=== PATIENT | female | born 1990 | race Caucasian/White ===

== ENCOUNTER 2021-02-25 07:05 | Day surgery (SDC) | payer BC ==
[~2021-02-25 07:05] MED LIST: Lactated Ringers 1,000 ML IV SCH; Lidocaine 1%/Sod Bicarbonate in NS 8.4% 1 ML Syringe IDERM PRN; Sodium Chloride 0.9% 10 ML Syringe FLUSH PRN
[2021-02-25] MEDS ORDERED: Methylene Blue 50 MG/10 ML Ampule ONE (07:09)
[2021-02-25] MEDS ORDERED: Bupivacaine 0.5% 30 ML SDV ONE (07:09)
[2021-02-25] MEDS ORDERED: Dextrose 5% in Water 100 ML ONE (07:10)
[2021-02-25] MEDS ORDERED: Rocuronium 50 MG/5 ML Vial ONE (07:21)
[2021-02-25] MEDS ORDERED: Ondansetron 4 MG/2 ML SDV ONE (07:21)
[2021-02-25] MEDS ORDERED: fentaNYL 250 MCG/5 ML SDV ONE (07:21)
[2021-02-25] MEDS ORDERED: Propofol 200 MG/20 ML SDV ONE (07:21)
[2021-02-25] MEDS ORDERED: Midazolam 1 MG/ML 2 ML SDV ONE (07:21)
[2021-02-25] MEDS ORDERED: Lidocaine 1% 4 ML ONE (07:21)
--- NOTE | 2021-02-25 07:39 | PCM.PREANE ---
Preanesthetic Assessment - Procedure Proposed Procedure: Laparoscopy with chromotubation - Anesthesia/Transfusion/Family Hx Anesthesia History: Unknown Family History of Anesthesia Reaction: No Transfusion History: No Prior Transfusion(s) Intubation History: Unknown - Review of Systems General: No Symptoms Pulmonary: Other ("Stuffy nose" from allergies) Cardiovascular: No Symptoms Gastrointestinal: No Symptoms Neurological: Other (Migraine and sciatic pain (right leg)) Other: Reports: None - Physical Assessment NPO Status Date: 02/24/21 NPO Status Time: 20:00 Vital Signs: 129/77 HR 75 RR 16 SpO2 98 Temp: 98.7 ASA Class: 2 Mental Status: Alert & Oriented x3 Airway Class: Mallampati = 1 Dentition: Reports: Normal Dentition Thyro-Mental Finger Breadths: 3 Mouth Opening Finger Breadths: 3 ROM/Head Extension: Full Lungs: Clear to Auscultation, Normal Respiratory Effort Cardiovascular: Regular Rate, Regular Rhythm - Lab Values: Laboratory Last Values Urine Color Yellow (Yellow) 02/25/21 07:14 Urine Appearance Clear (Clear) 02/25/21 07:14 Urine pH 7.0 (5.0-8.0) 02/25/21 07:14 Ur Specific Barnard 1.025 (1.005-1.030) 02/25/21 07:14 Urine Protein Trace (Negative) H 02/25/21 07:14 Urine Glucose (UA) Negative (Negative) 02/25/21 07:14 Urine Ketones Negative (Negative) 02/25/21 07:14 Urine Occult Blood 3+ (Negative) H 02/25/21 07:14 Urine Nitrite Negative (Negative) 02/25/21 07:14 Urine Bilirubin Negative (Negative) 02/25/21 07:14 Urine Urobilinogen 0.2 (0.2-1.0) 02/25/21 07:14 Ur Leukocyte Esterase Negative (Negative) 02/25/21 07:14 - Allergies Allergies/Adverse Reactions: Allergies Allergy/AdvReac Type Severity Reaction Status Date / Time cefixime [From Suprax] Allergy Hives Verified 08/14/20 13:51 sulfamethoxazole Allergy Hives Verified 08/14/20 13:51 [From Bactrim] trimethoprim [From Bactrim] Allergy Hives Verified 08/14/20 13:51 - Blood Blood Available: No Product(s) Available: None - Anesthesia Plan Pre-Op Medication Ordered: None - Acknowledgements Anesthesia Type Planned: General Anesthesia Pt an Appropriate Candidate for the Planned Anesthesia: Yes Alternatives and Risks of Anesthesia Discussed w Pt/Guardian: Yes Pt/Guardian Understands and Agrees with Anesthesia Plan: Yes PreAnesthesia Questionnaire HEENT History: Reports: Allergic Rhinitis Respiratory History: Reports: None Gastrointestinal History: Reports: GERD Other Gastrointestinal History: Heart burn well controlled with tums Genitourinary History: Reports: None LABORER PIPELINES History: Reports: Spontaneous Musculoskeletal History: Reports: None Neurological History: Reports: None Psychiatric History: Reports: None Endocrine/Metabolic History: Reports: None, Obesity/BMI 30+, Other (See Below) (Weight 225 lbs) Hematologic History: Reports: None Immunologic History: Reports: None Oncologic (Cancer) History: Reports: None Dermatologic History: Reports: None - Infectious Disease History Infectious Disease History: Reports: None - Past Surgical History Head Surgeries/Procedures: Reports: None HEENT Surgical History: Reports: Oral Surgery ([place] teeth 2009) - SUBSTANCE USE Tobacco Use Status *Q: Never Tobacco User Tobacco Use Within Last Twelve Months: No - CURRENT (IN HOUSE) MEDS Current Meds: Current Medications Lactated Ringer's (Ringers, Lactated) 1,000 mls @ 125 mls/hr IV ASDIRECTED SARA Stop: 02/25/21 23:00 Lidocaine/Sodium Bicarbonate (Lidocaine 1%/Sod Bicarbonate In Ns 8.4% 1 Ml Syringe) 0.25 ml IDERM ONETIME PRN PRN Reason: Prior to IV Start Stop: 02/25/21 23:00 Sodium Chloride (Sodium Chloride 0.9% 10 Ml Syringe) 10 ml FLUSH ASDIRECTED PRN PRN Reason: Keep Vein Open Stop: 02/25/21 23:00 Discontinued Medications Bupivacaine HCl (Bupivacaine 0.5% 30 Ml Sdv) Confirm Administered Dose 30 ml .ROUTE .STK-MED ONE Stop: 02/25/21 07:10 Fentanyl (Fentanyl 250 Mcg/5 Ml Sdv) Confirm Administered Dose 250 mcg .ROUTE . STK-MED ONE Stop: 02/25/21 07:22 Lactated Ringer's (Ringers, Lactated) 1,000 mls @ 125 mls/hr IV ASDIRECTED SARA Stop: 02/23/21 23:00 Dextrose/Water (Dextrose 5% In Water) Confirm Administered Dose 100 mls @ as directed .ROUTE .STK-MED ONE Stop: 02/25/21 07:11 Lidocaine HCl (Xylocaine-Mpf 1%) Confirm Administered Dose 4 mls @ as directed .ROUTE .STK-MED ONE Stop: 02/25/21 07:22 Lidocaine/Sodium Bicarbonate (Lidocaine 1%/Sod Bicarbonate In Ns 8.4% 1 Ml Syringe) 0.25 ml IDERM ONETIME PRN PRN Reason: Prior to IV Start Stop: 02/23/21 23:00 Methylene Blue (Methylene Blue 50 Mg/10 Ml Ampule) Confirm Administered Dose 50 mg .ROUTE .STK-MED ONE Stop: 02/25/21 07:10 Midazolam HCl (Midazolam 1 Mg/Ml 2 Ml Sdv) Confirm Administered Dose 2 mg .ROUTE .STK-MED ONE Stop: 02/25/21 07:22 Ondansetron HCl (Ondansetron 4 Mg/2 Ml Sdv) Confirm Administered Dose 4 mg .ROUTE .STK-MED ONE Stop: 02/25/21 07:22 Propofol (Propofol 200 Mg/20 Ml Sdv) Confirm Administered Dose 200 mg .ROUTE .STK-MED ONE Stop: 02/25/21 07:22 Rocuronium [place] (Rocuronium 50 Mg/5 Ml Vial) Confirm Administered Dose 50 mg .ROUTE .STK-MED ONE Stop: 02/25/21 07:22 Sodium Chloride (Sodium Chloride 0.9% 10 Ml Syringe) 10 ml FLUSH ASDIRECTED PRN PRN Reason: Keep Vein Open Stop: 02/23/21 23:00
[2021-02-25] MEDS ORDERED: ceFAZolin 1 GM Vial ONE (08:16)
[2021-02-25] MEDS ORDERED: Dexmedetomidine 200 MCG/2 ML SDV ONE (08:36)
[2021-02-25] MEDS ORDERED: Sodium Chloride 0.9% 100 ML ONE (08:36)
[2021-02-25] MEDS ORDERED: Lactated Ringers 1,000 ML ONE (08:46)
[2021-02-25] MEDS ORDERED: Ketorolac 30 MG/ML SDV ONE (08:50)
[2021-02-25] MEDS ORDERED: Ondansetron 4 MG/2 ML SDV IVPUSH PRN ×2 (08:53→09:05)
--- NOTE | 2021-02-25 09:03 | PCM.OPNOTE ---
- General Post-Op/Procedure Note Date of Surgery/Procedure: 02/25/21 Operative Procedure(s): Laparoscopy, chromopertubation, biopsy of right uterosacral ligament Findings: The right fallopian tube appeared minimally scarred at the distal end but allowed adequate spillage of methylene blue. Left fallopian tube was moderately but not completely fine most requiring increased amount of pressure with methylene blue resulting in some ballooning of the tube. Spill did occur with instillation of methylene blue. Posterior cul-de-sac endometriosis was noted on bilateral uterosacral ligaments. 1 of these areas were biopsied. Both ovaries appeared to be functional and normal. Anterior posterior cul-de-sac otherwise was unremarkable. The base of the appendix was visualized and found not to be inflamed. The right and left lobe of the liver were unremarkable. The gallbladder was distended but noninflamed. Pre Op Diagnosis: 1. Secondary infertility. 2. Abnormal HSG with blockage of left fallopian tube Post-Op Diagnosis: 1. Secondary infertility. 2. Abnormal HSG-scarring of both fallopian tubesleft greater than right with moderate phimosis on the left. 3. Endometriosis posterior cul-de-sac Anesthesia Technique: General ET Tube Other Anesthesia Type: Marcaine 0.5% - 10 cc totallocal Primary Surgeon: Ben Beauchamp Secondary Surgeon: Pipo Michel Anesthesia Provider: Nubia Rivero Golf Ball Molder: Don Hodges Reason Golf Ball Molder Was Necessary: Retraction, assistance, patient safety, quality of care. Pathology: Peritoneal biopsyright uterosacral ligament Fluid Replacement, Intraop: 1,000 Output, Urine Amount: 400 EBL in mLs: 5 Drain/Tube Comments:: Indwelling bladder catheter during surgery only Condition: Good Free Text/Narrative:: Surgery duration: 19 minutes Surgery duration: 34 minutes Procedure: The patient was taken to the operating room and placed in supine position on the operative table. She had sequential compression stockings in place for DVT prophylaxis and had been given 2 g of Ancef IV for infection prophylaxis. She was administered general endotracheal anesthesia. After administration of anesthesia the patient was placed in dorsal lithotomy position and prepped and draped in usual fashion. An indwelling bladder catheter was placed as was a 5.1 mm caliber 6 cm long uterine manipulator. It should be noted the uterus sounded to 7 cm and was noted to be mid position. Infraumbilical incision site and suprapubic site were then infiltrated with approximately 3-4 mL of Marcaine 0.5%. 5 mm incisions were made in these areas. Verres needle was placed in the infraumbilical incision site and pneumoperitoneum was established was in 3 L of CO2. The laparoscopic sleeve was then placed as was the scope. Under direct visualization the suprapubic site was developed with a 5 mm port. A 5 mm right abdominal port was also placed visualization. Pelvis was evaluated findings as above. Right posterior cul-de-sac and right pelvic uterosacral areas were identified and some small mulberry colored lesions present these were biopsied. The right ovary was normal in appearance with functional corpus albicans present. Left ovary essentially the same. No endometriosis noted on the ovaries. Some stellate scarring was noted in the area of the left uterosacral ligament and the right uterosacral ligament. Chromopertubation was then undertaken. Right fallopian tube filled fairly readily with good spillage. Some moderate scarring noted at the distal end of the fallopian tube left fallopian tube filled but some ballooning was noted and some moderate phimosis was noted at the distal end. There however was spillage from both fallopian tubes. The biopsy site on the right uterosacral ligament was found to be hemostatically intact. The lower sleeve and the right abdominal port sleeve were removed under direct visualization. The 2 port site incisions were closed with single subcuticular interrupted suture of 3-0 Monocryl. The incisions were further approximated with Dermabond skin glue. The uterine manipulator and [address]kins martha ter removed. Patient was returned to the supine position and awakened from general endotracheal anesthesia. She left the operating room in good condition.
[2021-02-25] MEDS ORDERED: fentaNYL 100 MCG/2 ML SDV IVPUSH PRN (09:05)
[2021-02-25] MEDS ORDERED: HYDROmorphone 0.5 MG/0.5 ML Syringe IVPUSH PRN (09:05)
--- NOTE | 2021-02-25 09:07 | PCM.POSTAN ---
POST ANESTHESIA ASSESSMENT - MENTAL STATUS Mental Status: Alert, Oriented - VITAL SIGNS Vital Signs: Last Vital Signs Temp 98.7 F 02/25/21 07:25 Pulse 75 02/25/21 07:25 Resp 16 02/25/21 07:25 BP 129/77 02/25/21 07:25 Pulse Ox 98 02/25/21 07:25 0901 118/75 99% 75 19 98.5 - RESPIRATORY Respiratory Status: Respiratory Rate WNL, Airway Patent, O2 Saturation Stable, Supplemental Oxygen - CARDIOVASCULAR CV Status: Pulse Rate WNL, Blood Pressure Stable - GASTROINTESTINAL GI Status: No Symptoms - PAIN Pain Score: 0 - POST OP HYDRATION Hydration Status: Adequate & Stable
--- NOTE | 2021-02-25 10:26 | PCM48HPAN ---
Post Anesthesia Note - EVALUATION WITHIN 48HRS OF ANESTHETIC Vital Signs in Normal Range: Yes Patient Participated in Evaluation: Yes Respiratory Function Stable: Yes Airway Patent: Yes Cardiovascular Function Stable: Yes Hydration Status Stable: Yes Pain Control Satisfactory: Yes Nausea and Vomiting Control Satisfactory: Yes Mental Status Recovered: Yes Vital Signs: Last Vital Signs Temp 98.5 F 02/25/21 09:01 Pulse 75 02/25/21 07:25 Resp 18 02/25/21 10:00 BP 108/79 02/25/21 10:00 Pulse Ox 98 02/25/21 10:00 - COMMENTS/OBSERVATIONS Free Text/Narrative:: no complaints- minimal pain.
[2021-02-25] MEDS ORDERED: Ketorolac 30 MG/ML SDV IVPUSH ONE (15:00)
[2021-02-25] MEDS ORDERED: Ibuprofen 600 MG Tab PO PRN (21:00)
== END 2021-02-25 10:43 | disposition home or self-care (01) ==
LOC: JD.SDS 07:05
PROVIDERS: ATTEND Obstetrics & Gynecology
DX: N80.3 Endometriosis of pelvic peritoneum (principal); N97.8 Female infertility of other origin; N97.1 Female infertility of tubal origin; E66.9 Obesity, unspecified; Z68.36 Body mass index [BMI] 36.0-36.9, adult; Z88.1 Allergy status to other antibiotic agents; Z88.2 Allergy status to sulfonamides; Z88.8 Allergy status to other drugs, medicaments and biological substances; Z79.899 Other long term (current) drug therapy
CPT/HCPCS: 36415; 49321; 58350; 81003; 81025; 85025; J0690; J1885; J2250; J2405; J2704; J2710; J3010; J3490; J7120; 00840

== ENCOUNTER 2023-08-25 05:07 | Inpatient (IN) | payer BC ==
[~2023-08-25 05:07] MED LIST changes: +Bupivacaine 0.25% 10 ML SDV ONE; -Lactated Ringers 1,000 ML IV SCH; +Lidocaine 1% 10 ML MDV ONE; -Lidocaine 1%/Sod Bicarbonate in NS 8.4% 1 ML Syringe IDERM PRN; +Lidocaine 2% with EPINEPHrine 1:200,000 20 ML SDV ONE; +Sodium Bicarbonate 8.4% 50 MEQ/50 ML SDV ONE; -Sodium Chloride 0.9% 10 ML Syringe FLUSH PRN
[2023-08-25] MEDS ORDERED: Calcium Carbonate 500 MG Tab.Chew PO PRN (05:48)
[2023-08-25] MEDS ORDERED: Nalbuphine HCl 10 MG/ 1ML Amp IVPUSH PRN (05:48)
[2023-08-25] MEDS ORDERED: Lidocaine 1% 50 ML MDV INJECT PRN (05:48)
[2023-08-25] MEDS ORDERED: Acetaminophen 325 MG Tab PO PRN (05:48)
[2023-08-25] MEDS ORDERED: Ondansetron 4 MG/2 ML SDV IVPUSH PRN (05:48)
[2023-08-25] MEDS ORDERED: Oxytocin/Lactated Ringers 30 UNIT/500 ML BAG IV SCH ×2 (06:00→12:45)
[2023-08-25 06:22] LABS: BASOPHILS PERCENT AUTO 0.2 % (0.0-1.0); EOSINOPHILS PERCENT AUTO 0.2 % (0.0-6.0); HEMATOCRIT 38.6 % (37.0-47.0); IMMATURE GRAN ABSOLUTE AUTO 0.05 K/mm3 (0.00-0.05); IMMATURE GRAN PERCENT AUTO 0.6 % (0.0-0.4); LYMPHOCYTES ABSOLUTE AUTO 1.9 K/mm3 (1.0-4.8); LYMPHOCYTES PERCENT AUTO 20.7 % (24.0-44.0); MEAN CORPUSCULAR HEMOGLOBIN 29.5 pg (28.0-32.0); MEAN CORPUSCULAR HGB CONC 33.7 g/dl (32.0-36.0); MEAN CORPUSCULAR VOLUME 87.7 fl (83.0-99.0); MEAN PLATELET VOLUME 9.5 fl (9.4-12.3); MONOCYTES ABSOLUTE AUTO 0.5 K/mm3 (0.0-0.8); MONOCYTES PERCENT AUTO 5.6 % (0.0-8.0); NEUTROPHILS ABSOLUTE AUTO 6.6 K/mm3 (1.8-7.7); NEUTROPHILS PERCENT AUTO 72.7 % (41.0-71.0); PLATELET COUNT,PLT 252 K/mm3 (150-400); WHITE BLOOD CELL COUNT,WBC 9.09 K/mm3 (3.9-11.3)
[2023-08-25] MEDS: Lactated Ringers 1,000 ML IV SCH ×3 (10:37→12:53)
[2023-08-25] MEDS ORDERED: ePHEDrine 50 MG/ML SDV IVPUSH PRN (10:45)
[2023-08-25] MEDS ORDERED: diphenhydrAMINE 50 MG/ML SDV IVPUSH PRN (10:45)
[2023-08-25] MEDS: fentaNYL 100 MCG/2 ML SDV EPIDUR PRN ×2 (11:17→16:39)
[2023-08-25] MEDS: Bupivacaine/fentaNYL/NS 100 ML Bag EPIDUR PRN ×2 (11:18→17:13)
[2023-08-25] MEDS ORDERED: fentaNYL 100 MCG/2 ML SDV ONE (16:27)
[2023-08-25] MEDS ORDERED: Dexmedetomidine 200 MCG/2 ML SDV ONE (16:28)
[2023-08-26] MEDS ORDERED: Acetaminophen 325 MG Tab PO PRN (00:37)
[2023-08-26] MEDS ORDERED: Hydrocortisone Acetate 25 MG Supp RECTAL PRN (00:37)
[2023-08-26] MEDS ORDERED: Witch Hazel Medicated Pads 40/Jar TOP PRN (00:37)
[2023-08-26] MEDS ORDERED: Benzocaine/Menthol 20%-0.5% Spray 78 GM Cannister TOP PRN (00:37)
[2023-08-26] MEDS ORDERED: Magnesium Hydroxide 400 MG/5 ML Susp 30 ML Cup PO PRN (00:37)
[2023-08-26] MEDS: Ibuprofen 600 MG Tab PO PRN ×3 (02:25→22:27)
[2023-08-26] MEDS: Prenatal Multivitamin with Calcium/Folic Acid/Iron Tab PO SCH (08:01)
[2023-08-26] MEDS: Docusate Sodium 100 MG Cap PO PRN (16:38)
[2023-08-27] MEDS: Docusate Sodium 100 MG Cap PO PRN (09:17)
[2023-08-27] MEDS: Prenatal Multivitamin with Calcium/Folic Acid/Iron Tab PO SCH (09:17)
== END 2023-08-27 10:38 | disposition home or self-care (01) | DRG 560 ==
LOC: JD.OB 05:07 → OBSVTOIN 22:24 → JD.OB 22:24
PROVIDERS: ADMIT Obstetrics & Gynecology; ATTEND Obstetrics & Gynecology
PROC: 10E0XZZ Delivery of Products of Conception, External Approach (ICD-10-PCS; principal; 2023-08-25)
PROC: 0KQM0ZZ Repair Perineum Muscle, Open Approach (ICD-10-PCS; 2023-08-25)
PROC: 10907ZC Drainage of Amniotic Fluid, Therapeutic from Products of Conception, Via Natural or Artificial Opening (ICD-10-PCS; 2023-08-25)
PROC: 3E0R3BZ Introduction of Anesthetic Agent into Spinal Canal, Percutaneous Approach (ICD-10-PCS; 2023-08-25)
PROC: 00HU33Z Insertion of Infusion Device into Spinal Canal, Percutaneous Approach (ICD-10-PCS; 2023-08-25)
DX: O99.214 Obesity complicating childbirth (principal); O70.1 Second degree perineal laceration during delivery; Z37.0 Single live birth; Z3A.39 39 weeks gestation of pregnancy; Z79.82 Long term (current) use of aspirin
CPT/HCPCS: 36415; 51701; 51702; 59025; 59409; 85025; 86592; 86850; 86900; 86901; A9270-GY; J3010; J3490; J7120; J7999